=== PATIENT | female | born 1990 | race Caucasian/White ===

== ENCOUNTER 2022-03-18 00:17 | Emergency (ER) | payer OTHER ==
[2022-03-18 00:33] VITALS: BP 147/90; PULSE 88; RESP 17; TEMP 98.1; BMI 38.2
[2022-03-18 01:18] LABS: BASO % 1.2 % (0-2.0); EOS % 2.4 % (0-4.5); HEMATOCRIT 36.8 % (32.4-45.2); HEMOGLOBIN 11.5 GM/dL (10.7-15.3); LYMPH % 30.6 % (8-40); MCHC 31.3 g/dl (32.0-36.0); MEAN CELL VOLUME 73.5 fl (80-96); MEAN PLT VOLUME 9.7 fl (7.5-11.1); MONO % 7.3 % (3.8-10.2); NEUT % 58.5 % (42.8-82.8); PLATELET COUNT 248 10^3/uL (134-434); RBC 5.01 M/mm3 (3.60-5.2); RDW 30.4 % (11.6-15.6); WHITE BLOOD COUNT 7.9 K/mm3 (4.0-10.0)
[2022-03-18 01:23] LABS: EPI CELLS 25 /uL (0-25.1); HYALINE CASTS 13 /uL (0-3.1); PH,URINE 5.5 (5.0-8.0); URINE APPEARANCE TURBID; URINE BACTERIA 71 /uL (0-1359); URINE BILIRUBIN 2+ (NEGATIVE); URINE COLOR RED; URINE GLUCOSE (UA) NEGATIVE (NEGATIVE); URINE KETONE TRACE (NEGATIVE); URINE LEUK ESTERASE 2+ (NEGATIVE); URINE NITRITE NEGATIVE (NEGATIVE); URINE PROTEIN 2+ (NEGATIVE); URINE UROBILINOGEN 0.2 mg/dL (0.2-1.0); URINE WBC 667 /uL (0-25.8)
[2022-03-18 01:36] LABS: ALBUMIN 3.6 g/dl (3.4-5.0); BLOOD UREA NITROGEN 15.2 mg/dL (7-18); CALCIUM 9.4 mg/dL (8.5-10.1)
[2022-03-18 01:39] LABS: CREATININE 0.8 mg/dL (0.55-1.3)
[2022-03-18 01:41] LABS: BILIRUBIN,TOTAL 0.3 mg/dL (0.2-1); TOT PROT 7.7 g/dl (6.4-8.2)
[2022-03-18 03:59] LABS: URINE RBC 23594.6 /uL (0-23.9); YEAST NONE SEEN (NEGATIVE)
== END 2022-03-18 04:56 | disposition home or self-care (01) ==
LOC: JER 00:17
DX: O03.9 Complete or unspecified spontaneous abortion without complication (principal); Z3A.09 9 weeks gestation of pregnancy
CPT/HCPCS: 36415; 76817-TC; 80053; 81003; 84702; 85025; 86850; 86900; 86901; 87086; 87186; 99284-25

== ENCOUNTER 2023-06-12 14:36 | Emergency (ER) | payer OTHER ==
[2023-06-12 14:46] VITALS: TEMP 97.8; BMI 32.4
[2023-06-12 15:39] LABS: BASO % 0.7 % (0-2.0); EOS % 2.2 % (0-4.5); HEMATOCRIT 43.3 % (32.4-45.2); HEMOGLOBIN 14.6 GM/dL (10.7-15.3); LYMPH % 20.9 % (8-40); MCH 28.9 pg (25.7-33.7); MCHC 33.8 g/dl (32.0-36.0); MEAN CELL VOLUME 85.5 fl (80-96); MEAN PLT VOLUME 9.3 fl (7.5-11.1); MONO % 6.8 % (3.8-10.2); NEUT % 69.4 % (42.8-82.8); PLATELET COUNT 228 10^3/uL (134-434); RBC 5.06 M/mm3 (3.60-5.2); RDW 16.2 % (11.6-15.6)
[2023-06-12 15:46] LABS: POTASSIUM 3.8 mmol/L (3.5-5.1)
[2023-06-12 15:50] LABS: ALBUMIN 3.5 g/dl (3.4-5.0)
[2023-06-12 15:53] LABS: CREATININE 0.7 mg/dL (0.55-1.3)
[2023-06-12 15:54] LABS: BILIRUBIN,TOTAL 0.4 mg/dL (0.2-1)
[2023-06-12 15:55] LABS: TOT PROT 7.2 g/dl (6.4-8.2)
[2023-06-12 15:59] LABS: EPI CELLS 27 /uL (0-25.1); HYALINE CASTS 1 /uL (0-3.1); URINE APPEARANCE CLOUDY; URINE BACTERIA 257 /uL (0-1359); URINE BILIRUBIN NEGATIVE (NEGATIVE); URINE COLOR ORANGE; URINE GLUCOSE (UA) NEGATIVE (NEGATIVE); URINE KETONE NEGATIVE (NEGATIVE); URINE LEUK ESTERASE 1+ (NEGATIVE); URINE NITRITE NEGATIVE (NEGATIVE); URINE PROTEIN 1+ (NEGATIVE); URINE RBC 8260 /uL (0-23.9); URINE WBC 99 /uL (0-25.8)
[2023-06-12 17:22] VITALS: BP 130/78; PULSE 80; RESP 16
== END 2023-06-12 17:22 | disposition home or self-care (01) ==
LOC: JER 14:36
DX: O03.9 Complete or unspecified spontaneous abortion without complication (principal)
CPT/HCPCS: 36415; 76817-TC; 80053; 81003; 84702; 85025; 86850; 86900; 86901; 87086; 99284-25

== ENCOUNTER 2023-06-14 21:01 | Emergency (ER) | payer OTHER ==
[2023-06-14 21:06] VITALS: BP 147/99; PULSE 81; RESP 19; TEMP 97.9; BMI 32.4
== END 2023-06-14 23:23 | disposition home or self-care (01) ==
LOC: JERFT 21:01
DX: O03.9 Complete or unspecified spontaneous abortion without complication (principal)
CPT/HCPCS: 36415; 84702; 99283-25

== ENCOUNTER 2023-11-09 18:02 | Emergency (ER) | payer OTHER ==
[2023-11-09 18:17] VITALS: BP 136/93; PULSE 79; RESP 18; TEMP 98.4; BMI 33.1
[2023-11-09 19:09] LABS: URINE APPEARANCE CLEAR; URINE BILIRUBIN NEGATIVE (NEGATIVE); URINE COLOR YELLOW; URINE GLUCOSE (UA) NEGATIVE (NEGATIVE); URINE KETONE TRACE (NEGATIVE); URINE LEUK ESTERASE 2+ (NEGATIVE); URINE NITRITE NEGATIVE (NEGATIVE); URINE PROTEIN NEGATIVE (NEGATIVE); URINE UROBILINOGEN 0.2 mg/dL (0.2-1.0)
[2023-11-09 19:22] LABS: EPI CELLS 6.2 /uL (0-25.1); HYALINE CASTS 0.43 /uL (0-3.1); URINE RBC 48.6 /uL (0-23.9); URINE WBC 59.6 /uL (0-25.8)
[2023-11-09 19:23] LABS: URINE BACTERIA 234.6 /uL (0-1359); YEAST FEW (NEGATIVE)
[2023-11-09] MEDS ORDERED: CEPHALEXIN MONOHYDRATE 500 MG CAPSULE (UD) ONE ×2 (19:35→19:49)
[2023-11-09] MEDS: CEPHALEXIN MONOHYDRATE 500 MG CAPSULE (UD) PO ONE (19:51)
[2023-11-09 20:59] LABS: HIV INTERPRETATION NEGATIVE (NEGATIVE)
== END 2023-11-09 20:09 | disposition home or self-care (01) ==
LOC: JER 18:02
DX: O09.511 Supervision of elderly primigravida, first trimester (principal); O23.40 Unspecified infection of urinary tract in pregnancy, unspecified trimester; Z3A.08 8 weeks gestation of pregnancy
CPT/HCPCS: 36415; 81003; 86803; 87070; 87077; 87086; 87205; 87389; 87491; 87591; 87661; 99283-25

== ENCOUNTER 2024-05-25 09:15 | Inpatient (IN) | payer OTHER ==
[2024-05-25 09:59] LABS: BASO % 0.7 % (0-2.0); EOS % 2.5 % (0-4.5); HEMATOCRIT 38.1 % (32.4-45.2); LYMPH % 21.4 % (8-40); MCH 31.4 pg (25.7-33.7); MCHC 34.1 g/dl (32.0-36.0); MEAN CELL VOLUME 92.3 fl (80-96); MEAN PLT VOLUME 9.8 fl (7.5-11.1); MONO % 7.9 % (3.8-10.2); NEUT % 67.5 % (42.8-82.8); PLATELET COUNT 193 10^3/uL (134-434); RBC 4.13 M/mm3 (3.60-5.2); RDW 14.5 % (11.6-15.6); WHITE BLOOD COUNT 6.9 K/mm3 (4.0-10.0)
[2024-05-25 10:06] LABS: INR 0.92 (0.83-1.09); PROTHROMBIN TIME (PATIENT) 10.1 SEC (9.7-13.0)
[2024-05-25 10:08] LABS: ACTIVATED PTT 28.9 SECONDS (25.2-36.5)
[2024-05-25 10:21] LABS: CHLORIDE 104 mmol/L (98-107); POTASSIUM 4.7 mmol/L (3.5-5.1); SODIUM 137 mmol/L (136-145)
[2024-05-25 10:22] LABS: ANION GAP 8 mmol/L (4-13); BLOOD UREA NITROGEN 20.1 mg/dL (7-18); CALCIUM 8.7 mg/dL (8.5-10.1); CO2 24 mmol/L (21-32); GLUCOSE,RANDOM 153 mg/dL (74-106)
[2024-05-25 10:25] LABS: CREATININE 0.7 mg/dL (0.55-1.3)
[2024-05-25] MEDS: ELECTROLYTE-148 SOLN 1,000 ML IV SCH (10:30)
[2024-05-25] MEDS ORDERED: LABETALOL HCL 100 MG TABLET (FP) ONE ×2 (11:00→22:07)
[2024-05-25] MEDS: LABETALOL HCL 100 MG TABLET (FP) PO SCH (11:02)
[2024-05-25 11:54] LABS: URIC ACID 6.3 mg/dL (2.6-7.2)
[2024-05-25] MEDS: DINOPROSTONE 10 MG VAGINAL SUPPOSITORY VG ONE (12:30)
[2024-05-25 13:12] VITALS: BMI 42.5
[2024-05-25] MEDS: AMPICILLIN - 2 GM in SODIUM CHLORIDE 100 ML IVPB ONE (13:27)
[2024-05-25] MEDS: AMPICILLIN - 1 GM in SODIUM CHLORIDE 100 ML IVPB SCH (17:42)
[2024-05-25] MEDS ORDERED: INSULIN (NOVOLOG) ASPART 100 UNITS/ML 10ML VIAL ONE (20:04)
[2024-05-25] MEDS: INSULIN (NOVOLOG) ASPART 100 UNITS/ML 10ML VIAL SQ STA (20:15)
[2024-05-25] MEDS: INSULIN ASPART SLIDING SCALE (NOVOLOG) 1 VIAL SQ SCH (22:15)
[2024-05-26] MEDS ORDERED: OXYTOCIN 30 UNITS in 0.9% NS 30 UNIT/500 ML INFUS.BAG IVPB ONE (00:58)
[2024-05-26] MEDS: OXYTOCIN 30 UNITS in 0.9% NS 30 UNIT/500 ML INFUS.BAG IVPB SCH (01:30)
[2024-05-26] MEDS ORDERED: AMPICILLIN SODIUM 2 GM VIAL ONE (03:04)
[2024-05-26] MEDS ORDERED: SODIUM CHLORIDE 100 ML IVPB ONE ×2 (03:05→06:31)
[2024-05-26] MEDS: AMPICILLIN - 2 GM in SODIUM CHLORIDE 100 ML IVPB ONE (03:10)
[2024-05-26] MEDS ORDERED: AMPICILLIN SODIUM 1 GM VIAL ONE (06:31)
[2024-05-26] MEDS: AMPICILLIN - 1 GM in SODIUM CHLORIDE 100 ML IVPB SCH (06:45)
[2024-05-26] MEDS ORDERED: LABETALOL HCL 200 MG TABLET (FP) ONE (08:12)
[2024-05-26] MEDS: LABETALOL HCL 200 MG TABLET (FP) PO SCH (08:15)
[2024-05-26] MEDS ORDERED: LIDOCAINE HCL 1% PRESERVATIVE FREE - 30ML VIAL ONE (08:37)
[2024-05-26] MEDS ORDERED: OXYTOCIN 20 UNITS in 0.9% NS 20 UNIT/1,000 ML INFUS.BAG IV ONE (08:37)
[2024-05-26] MEDS ORDERED: ACETAMINOPHEN INJECTION 100 ML ONE (09:34)
[2024-05-26] MEDS: ACETAMINOPHEN 1000 MG/100 ML BAG IVPB ONE (09:35)
[2024-05-26] MEDS ORDERED: MISOPROSTOL 200 MCG TABLET ONE (09:39)
[2024-05-26] MEDS: OXYTOCIN 20 UNITS in 0.9% NS 20 UNIT/1,000 ML INFUS.BAG IV SCH (09:40)
[2024-05-26] MEDS ORDERED: WITCH HAZEL 50% (TUCKS) 40 PAD/JAR PAD TP PRN (09:48)
[2024-05-26] MEDS ORDERED: BENZOCAINE 28 GM HEMORRHOIDAL OINTMENT TP PRN (09:48)
[2024-05-26] MEDS ORDERED: METHYLERGONOVINE MALEATE 0.2 MG/1 ML AMP IM PRN (09:48)
[2024-05-26] MEDS ORDERED: BISACODYL 10 MG SUPP.RECT RC PRN (09:48)
[2024-05-26] MEDS: MISOPROSTOL 200 MCG TABLET PR ONE (09:50)
[2024-05-26 10:33] LABS: CORD BASE EXCESS -2.2 mmol/L (0-2); CORD HCO3 23.3 mmHg (20-29); CORD PCO2 42.5 mmHg (30-78); CORD pH 7.357 (7.14-7.44)
[2024-05-26 10:33] LABS: CORD BASE EXCESS -5.1 mmol/L (0-2); CORD HCO3 20.2 mmHg (20-29); CORD PCO2 38.4 mmHg (30-78); CORD pH 7.338 (7.14-7.44)
[2024-05-26] MEDS: IBUPROFEN 600 MG TABLET (FP) PO PRN (16:22)
[2024-05-26] MEDS: BENZOCAINE 20% 57 GM BOTTLE TP PRN (16:22)
[2024-05-27] MEDS: ACETAMINOPHEN 325 MG TABLET (FP) PO PRN (00:27)
[2024-05-27] MEDS: metFORMIN HCL 500 MG TABLET (FP) PO SCH (06:35)
[2024-05-27 06:56] LABS: BASO % 0.8 % (0-2.0); HEMATOCRIT 28.2 % (32.4-45.2); HEMOGLOBIN 9.5 GM/dL (10.7-15.3); LYMPH % 23.4 % (8-40); MCH 31.4 pg (25.7-33.7); MCHC 33.6 g/dl (32.0-36.0); MEAN CELL VOLUME 93.4 fl (80-96); MEAN PLT VOLUME 10.1 fl (7.5-11.1); MONO % 7.4 % (3.8-10.2); NEUT % 66.4 % (42.8-82.8); PLATELET COUNT 168 10^3/uL (134-434); RBC 3.01 M/mm3 (3.60-5.2); RDW 14.5 % (11.6-15.6); WHITE BLOOD COUNT 10.2 K/mm3 (4.0-10.0)
[2024-05-27 21:59] VITALS: RESP 18
[2024-05-27] MEDS ORDERED: SENNOSIDES/DOCUSATE COMBO (SENNA PLUS) TABLET (UD) PO PRN (22:00)
[2024-05-28] MEDS: FERROUS SO4 325 MG TABLET (FP) PO SCH (09:42)
[2024-05-28 11:18] VITALS: PULSE 105; TEMP 98.6
[2024-05-28 11:20] VITALS: BP 121/63
== END 2024-05-28 15:25 | disposition home or self-care (01) | DRG 560 ==
LOC: JLDR 09:15 → J3W 05-26 11:29
PROVIDERS: ADMIT Obstetrics & Gynecology Obstetrics; ATTEND Obstetrics & Gynecology Obstetrics
PROC: 10E0XZZ Delivery of Products of Conception, External Approach (ICD-10-PCS; principal; 2024-05-26)
PROC: 0HQ9XZZ Repair Perineum Skin, External Approach (ICD-10-PCS; 2024-05-26)
DX: O24.429 Gestational diabetes mellitus in childbirth, unspecified control (principal); O16.3 Unspecified maternal hypertension, third trimester; O70.0 First degree perineal laceration during delivery; Z3A.37 37 weeks gestation of pregnancy; Z37.0 Single live birth
CPT/HCPCS: 36415; 36600; 59409; 80048; 82570; 82803; 82962; 84156; 84450; 84460; 84550; 85025; 85610; 85730; 86780; 86850; 86900; 86901; J0131